=== PATIENT | female | born 1995 | race Caucasian/White ===

== ENCOUNTER 2017-09-08 08:17 | Emergency (ER) | payer SELFPAY ==
[2017-09-08 08:37] VITALS: BP 132/90; PULSE 68; TEMP 98.6; BMI 31.4
[2017-09-08] MEDS ORDERED: ACETAMINOPHEN 500 MG TABLET (FP) ONE (08:38)
--- NOTE | 2017-09-08 08:38 | PDOC ---
History of Present Illness - General Chief Complaint: Pain Stated Complaint: JAMMED LEFT THUMB IN CAR DOOR Time Seen by Provider: 09/08/17 08:20 - History of Present Illness Initial Comments: 09/08/17 08:32 22-year-old R handed female with no significant past medical history presents to the emergency Department with left thumb pain after jamming her finger in a car door yesterday. Patient was going home from work last night about 1 AM when she closed the car door on her distal thumb. She reports significant pain at the time but was able to tolerate it and went home and went to bed. She reports the pain has become progressively worse prompting her to come into the emergency department. Patient was otherwise in her usual state of good health, denies fevers, chills, chest pain, shortness of breath, abdominal pain, nausea, vomiting, diarrhea, lower extremity edema. Denies any other injuries. Past History - Past Medical History Allergies/Adverse Reactions: Allergies Allergy/AdvReac Type Severity Reaction Status Date / Time No Known Allergies Allergy Verified 09/08/17 08:18 Home Medications: Ambulatory Orders NK [No Known Home Medication] 09/08/17 - Suicide/Smoking/Psychosocial Hx Smoking Status: No Smoking History: Never smoked Number of Cigarettes Smoked Daily: 0 Review of Systems - Review of Systems Comments:: 09/08/17 08:36 GENERAL/CONSTITUTIONAL: No fever or chills. No weakness. HEAD, EYES, EARS, NOSE AND THROAT: No change in vision. No ear pain or discharge. No sore throat. GASTROINTESTINAL: No nausea, vomiting, diarrhea or constipation. GENITOURINARY: No dysuria, frequency, or change in urination. CARDIOVASCULAR: No chest pain or shortness of breath. RESPIRATORY: No cough, wheezing, or hemoptysis. MUSCULOSKELETAL: No muscle swelling or pain. No neck or back pain. +L thumb pain SKIN: No rash NEUROLOGIC: No headache, vertigo, loss of consciousness, or change in strength/ sensation. ENDOCRINE: No increased thirst. No abnormal weight change. HEMATOLOGIC/LYMPHATIC: No anemia, easy bleeding, or history of blood clots. ALLERGIC/IMMUNOLOGIC: No hives or skin allergy. *Physical Exam - Physical Exam Comments: 09/08/17 08:36 GENERAL: Awake, alert, and fully oriented, in no acute distress HEAD: No signs of trauma EYES: PERRLA, EOMI, sclera anicteric, conjunctiva clear ENT: Auricles normal inspection, hearing grossly normal, nares patent, oropharynx clear without exudates. Moist mucosa NECK: Normal ROM, supple, no lymphadenopathy, JVD, or masses LUNGS: Breath sounds equal, clear to auscultation bilaterally. No wheezes, and no crackles HEART: Regular rate and rhythm, normal S1 and S2, no murmurs, rubs or gallops ABDOMEN: Soft, nontender, normoactive bowel sounds. No guarding, no rebound. No masses EXTREMITIES: L thumbnail with acrylic nail on obscuring nail, however evidence of subungal hematoma at nail bed. L thumb with FROM to passive and active resistance, normal sensation. 2+ radial pulse. Otherwise, normal range of motion , no edema. No clubbing or cyanosis. No cords, erythema, or tenderness NEUROLOGICAL: Normal speech, cranial nerves intact, 5/5 strength in all 4 extremities SKIN: Warm, Dry, normal turgor, no rashes or lesions noted. Medical Decision Making - Medical Decision Making 09/08/17 08:39 22yo F presents to the ED with L thumb injury. Plan to check UPT, XR for bony injury. Will obtain acetone to soak and remove acrylic nail and assess for need for trephination. Has not taken anything for pain control, will start with tylenol, then likely digital nerve block. 09/08/17 11:04 Tdap updated. Nail soaked in acetone. UPT neg, XR with no fracture. EMLA applied , nerve block administered. Acrylic nail mostly removed using scalpel and suture material, reveals a 25-30% subungal hematoma underneath, with tiny 1mm defect in the skin at the nail bed. Pt likely bled through this defect which limited size of subungal hematoma. Finger washed out. Given small hematoma, will not trephinate or remove nail. Finger placed in splint, will refer to hand surgeon. Discussed with pt that her nail will be abnormal for 6 months, possibly indefinitely. Pain well controlled, will DC. I discussed the physical exam findings, ancillary test results and final diagnoses with the patient. I answered all of the patient's questions. The patient was satisfied with the care received and felt comfortable with the discharge plan and treatment plan. The patient will call their primary care physician within 24 hours to arrange follow-up and will return to the Emergency Department with any new, persistent or worsening symptoms. *DC/Admit/Observation/Transfer Diagnosis at time of Disposition: Fingernail injury - Discharge Dispostion Disposition: HOME Condition at time of disposition: Stable Admit: No - Referrals Referrals: Dalton Harley MD [Staff Physician] - - Patient Instructions Printed Discharge Instructions: DI for Nail Avulsion Injury Additional Instructions: Call Dr. Hoffman's office for a follow up appointment with the hand doctor within 1 week. Take naproxen as needed for pain. If naproxen does not adequately control your pain, take Percocet as needed. Do not drive or operate machinery if you're taking Percocet as it can make you dizzy or drowsy. Return to the emergency department if you have any new, worsening or concerning symptoms. - Post Discharge Activity Forms/Work/School Notes: Back to Work - Attestations Physician Attestion: 09/08/17 11:17 I, Dr. Cesar Madsen MD, attest that this document has been prepared under my direction and personally reviewed by me in its entirety. I further attest, that it accurately reflects all work, treatment, procedures and medical decision -making performed by me.
[2017-09-08] MEDS ORDERED: ACETAMINOPHEN 500 MG TABLET (FP) PO ONE (08:41)
[2017-09-08] MEDS ORDERED: LIDOCAINE 2.5%/PRILOCAINE 2.5% (5 Gram/TUBE) TP ONE ×2 (09:38→09:41)
[2017-09-08] MEDS ORDERED: oxyCODONE HCL 5 MG TABLET PO ONE (09:39)
[2017-09-08] MEDS ORDERED: LIDOCAINE HCL 1%, 10 MG/ML (50 mL VIAL) SQ ONE (10:03)
[2017-09-08] MEDS ORDERED: LIDOCAINE HCL 1%, 10 MG/ML (20ML VIAL) ONE (10:05)
[2017-09-08] MEDS ORDERED: DIPHTH,PERTUSS(ACELL),TET 0.5 ML DISP.SYRIN IM ONE (11:04)
== END 2017-09-08 11:27 | disposition home or self-care (01) ==
LOC: FER 08:17
PROC: 2W3KX1Z Immobilization of Left Finger using Splint (ICD-10-PCS; principal; 2017-09-08)
PROC: 3E0234Z Introduction of Serum, Toxoid and Vaccine into Muscle, Percutaneous Approach (ICD-10-PCS; 2017-09-08)
PROC: 3E033NZ Introduction of Analgesics, Hypnotics, Sedatives into Peripheral Vein, Percutaneous Approach (ICD-10-PCS; 2017-09-08)
DX: S69.92XA Unspecified injury of left wrist, hand and finger(s), initial encounter (principal); W20.8XXA Other cause of strike by thrown, projected or falling object, initial encounter; Y93.89 Activity, other specified; Y92.9 Unspecified place or not applicable
CPT/HCPCS: 73130-TC-LR-FY; 73140-TC-LT-FY; 84703; 90715; 99282-25

== ENCOUNTER 2018-08-09 13:47 | Emergency (ER) | payer OTHER ==
--- NOTE | 2018-08-09 14:05 | PDOC ---
History of Present Illness - General History Source: Patient Exam Limitations: No Limitations - History of Present Illness Initial Comments: 08/09/18 15:08 The patient is a 23 year old female with no reported past medical history presents to the emergency department with abdominal pain, nausea, and vomiting. The patient presents with a gradual onset of constant lower abdominal pain, that s crampy in quality. The patient reports associated symptoms of a headache, nausea with a single episode of NBNB emesis yesterday. Denies diarrhea, vaginal discharge/bleeding, fever or chills. Allergies: NKDA PCP: None reported. <Marylin Palacio - Last Filed: 08/09/18 15:49> <Lelo Zuluaga - Last Filed: 08/09/18 17:22> - General Chief Complaint: Nausea Stated Complaint: STOMACH ACHE & NAUSEA Time Seen by Provider: 08/09/18 14:05 Past History <Marylin Palacio - Last Filed: 08/09/18 15:49> - Past Medical History COPD: No - Suicide/Smoking/Psychosocial Hx Smoking Status: No Smoking History: Never smoked Have you smoked in the past 12 months: No Number of Cigarettes Smoked Daily: 0 Hx Alcohol Use: Yes (SOCIAL) Drug/Substance Use Hx: Yes (MARIJUANA) Substance Use Type: Alcohol, Marijuana <Lelo Zuluaga - Last Filed: 08/09/18 17:22> - Past Medical History Allergies/Adverse Reactions: Allergies Allergy/AdvReac Type Severity Reaction Status Date / Time No Known Allergies Allergy Verified 08/09/18 14:01 Home Medications: Ambulatory Orders Bismuth Subsalicylate [Pepto-Bismol -] 524 mg PO ONCE 08/09/18 Calcium Carbonate/Simethicone [Gisselle-Tyrone Heartburn+Gas] 1 each PO ONCE Ibuprofen 400 mg PO ONCE 08/09/18 Review of Systems - Review of Systems Able to Perform ROS?: Yes Comments:: 08/09/18 15:08 GENERAL/CONSTITUTIONAL: No fever or chills. No weakness. HEAD, EYES, EARS, NOSE AND THROAT: No change in vision. No ear pain or discharge. No sore throat. CARDIOVASCULAR: No chest pain or shortness of breath. RESPIRATORY: No cough, wheezing, or hemoptysis. GASTROINTESTINAL: +lower abdominal pain, nausea and 1 episode of vomiting. Denies diarrhea or constipation. GENITOURINARY: No dysuria, frequency, or change in urination. MUSCULOSKELETAL: No joint or muscle swelling or pain. No neck or back pain. SKIN: No rash NEUROLOGIC: +headache. No vertigo, loss of consciousness, or change in strength /sensation. ENDOCRINE: No increased thirst. No abnormal weight change. HEMATOLOGIC/LYMPHATIC: No anemia, easy bleeding, or history of blood clots. ALLERGIC/IMMUNOLOGIC: No hives or skin allergy. <Marylin Palacio - Last Filed: 08/09/18 15:49> *Physical Exam - Vital Signs Last Vital Signs Temp Pulse Resp BP Pulse Ox 99.3 F 60 16 132/72 100 08/09/18 13:58 08/09/18 13:58 08/09/18 13:58 08/09/18 14:56 08/09/18 13:58 - Physical Exam Comments: 08/09/18 15:48 GENERAL: Awake, alert, and fully oriented, in no acute distress LUNGS: Breath sounds equal, clear to auscultation bilaterally. No wheezes, and no crackles HEART: Regular rate and rhythm, normal S1 and S2, no murmurs, rubs or gallops ABDOMEN: +very mild tenderness to the LLQ. Soft, nondistended. No guarding, no rebound. No masses EXTREMITIES: Normal range of motion, no edema. No clubbing or cyanosis. No cords, erythema, or tenderness NEUROLOGICAL: Cranial nerves II through XII grossly intact. Normal speech, normal gait SKIN: Warm, Dry, normal turgor, no rashes or lesions noted. <Marylin Palacio - Last Filed: 08/09/18 15:49> Moderate Sedation - Procedure Monitoring Vital Signs: Procedure Monitoring Vital Signs Temperature 99.3 F 08/09/18 13:58 Pulse Rate 60 08/09/18 13:58 Respiratory Rate 16 08/09/18 13:58 Blood Pressure 132/72 08/09/18 14:56 O2 Sat by Pulse Oximetry (%) 100 08/09/18 13:58 <Marylin Palacio - Last Filed: 08/09/18 15:49> ED Treatment Course - LABORATORY CBC & Chemistry Diagram: 08/09/18 15:05 08/09/18 15:05 - ADDITIONAL ORDERS Additional order review: Laboratory Results 08/09/18 14:25 Urine Color Yellow Urine Appearance Clear Urine pH 7.5 Urine Protein Negative Urine Glucose (UA) Negative Urine Ketones Negative Urine Blood Negative Urine Nitrite Negative Urine Bilirubin Negative Urine Urobilinogen 1.0 Ur Leukocyte Esterase Negative Urine HCG, Qual Positive <Marylin Palacio - Last Filed: 08/09/18 15:49> - LABORATORY CBC & Chemistry Diagram: 08/09/18 15:05 08/09/18 15:05 <Lelo Zuluaga - Last Filed: 08/09/18 17:22> Medical Decision Making - Medical Decision Making 08/09/18 17:16 Pt presents to the ED complaining of mild L sided abdominal pain without vaginal bleeding. Concern for ectopic, UTI. Denies vaginal bleeding or discharge. Transvaginal US shows IUP. Will discharge home with follow up and instructions to return to the ED for worsening symptoms. <Lelo Zuluaga - Last Filed: 08/09/18 17:22> *DC/Admit/Observation/Transfer - Attestations Scribe Attestion: 08/09/18 15:48 Documentation prepared by Marylin Palacio, acting as bilingual medical assistant for Lelo Zuluaga MD. <Marylin Palacio - Last Filed: 08/09/18 15:49> - Discharge Dispostion Decision to Admit order: No <Lelo Zuluaga - Last Filed: 08/09/18 17:22> Diagnosis at time of Disposition: Pelvic pain affecting in first trimester, antepartum - Discharge Dispostion Disposition: HOME Condition at time of disposition: Good - Referrals Referrals: Prince Duke MD [Staff Physician] - - Patient Instructions Printed Discharge Instructions: DI for Abdominal Pain -- Early Additional Instructions: You came to the ED for abdominal pain. We found that you are . You had an ultrasound that found that the baby was in the uterus. You call on Sunday to make an appointment for care. Return to the ED for vaginal bleeding, worsening abdominal pain, passing out, severe nausea and vomiting unable to keep fluids down.
[2018-08-09 14:08] VITALS: PULSE 60; TEMP 99.3; BMI 31.9
[2018-08-09 14:48] LABS: HCG,QUALITATIVE URINE Positive
[2018-08-09 14:56] VITALS: BP 132/72
[2018-08-09 15:27] LABS: EOS % 0.7 % (0-4.5)
[2018-08-09 15:30] LABS: HEMATOCRIT 30.5 % (32.4-45.2); HEMOGLOBIN 9.2 GM/dl (10.7-15.3); LYMPH % 19.6 % (8-40); MCHC 30.1 g/dl (32.0-36.0); MEAN PLT VOLUME 8.5 fl (7.5-11.1); MONO % 4.9 % (3.8-10.2); NEUT % 72.8 % (42.8-82.8); PLATELET COUNT 277 K/MM3 (134-434); RBC 4.92 M/mm3 (3.60-5.2); RDW 19.4 % (11.6-15.6); WHITE BLOOD COUNT 12.8 K/mm3 (4.0-10.8)
[2018-08-09 15:33] LABS: MCH 18.6 pg (25.7-33.7)
[2018-08-09 15:34] LABS: ADD RBC MORPHOLOGY YES
[2018-08-09 15:39] LABS: ALBUMIN 3.5 g/dl (3.4-5.0); ALK PHOS 53 U/L (45-117); ANION GAP 9 MMOL/L (8-16); BILIRUBIN,TOTAL 0.7 mg/dl (0.2-1); BLOOD UREA NITROGEN 11 mg/dl (7-18); CALCIUM 8.9 mg/dl (8.5-10); CHLORIDE 102 mmol/L (98-107); CO2 22 mmol/L (21-32); CREATININE 0.6 mg/dl (0.55-1.3); GLUCOSE,RANDOM 105 mg/dl (74-106); POTASSIUM 4.1 mmol/L (3.5-5.1); SGOT/AST 20 U/L (15-37); SGPT/ALT 14 U/L (13-61); SODIUM 133 mmol/L (136-145); TOT PROT 7.2 g/dl (6.4-8.2)
[2018-08-09 16:25] LABS: ANISOCYTOSIS 1+
[2018-08-09 16:26] LABS: OVALOCYTE 1+
== END 2018-08-09 17:33 | disposition home or self-care (01) ==
LOC: FER 13:47
DX: O26.891 Other specified pregnancy related conditions, first trimester (principal); R10.2 Pelvic and perineal pain
CPT/HCPCS: 36415; 76817-TC; 80053; 84702; 84703; 85025; 86850; 86900; 86901; 99282-25

== ENCOUNTER 2018-08-28 15:36 | Emergency (ER) | payer OTHER ==
[2018-08-28 15:51] VITALS: BP 142/57; PULSE 65; TEMP 98.4
--- NOTE | 2018-08-28 16:01 | PDOC ---
Rapid Medical Evaluation Chief Complaint: Pain, Acute Time Seen by Provider: 08/28/18 15:57 Medical Evaluation: Allergies Allergy/AdvReac Type Severity Reaction Status Date / Time No Known Allergies Allergy Verified 08/09/18 14:01 Vital Signs Temp Pulse Resp BP Pulse Ox 98.4 F 65 18 142/57 L 98 08/28/18 15:48 08/28/18 15:48 08/28/18 15:48 08/28/18 15:48 08/28/18 15:48 08/28/18 16:00 Pt c/o: abd pain, LMP 08/31, went to urgent care, noted rt ovarian mass?, no vag bleed Pt on brief exam: rt and midsuprapubic tenderness Pt ordered for: labs, urine, and u/s Pt to proceed to the ED Discharge Disposition - Diagnosis Abdominal pain - Discharge Dispostion Condition at time of disposition: Stable Last Admission D/C Date: 96 - Referrals - Patient Instructions - Post Discharge Activity
[2018-08-28 16:41] LABS: EOS % 0.4 % (0-4.5); HEMATOCRIT 28.4 % (32.4-45.2); HEMOGLOBIN 8.7 GM/dL (10.7-15.3); MCHC 30.6 g/dl (32.0-36.0); MEAN CELL VOLUME 61.5 fl (80-96); MEAN PLT VOLUME 8.9 fl (7.5-11.1); MONO % 6.5 % (3.8-10.2); NEUT % 81.1 % (42.8-82.8); PLATELET COUNT 241 K/MM3 (134-434); RBC 4.62 M/mm3 (3.60-5.2); RDW 21.5 % (11.6-15.6); WHITE BLOOD COUNT 12.4 K/mm3 (4.0-10.0)
[2018-08-28 16:45] LABS: EPI CELLS 15.2 /HPF (0-5/HPF); PH,URINE 5.5 (5.0-8.0); URINE APPEARANCE CLOUDY; URINE BACTERIA 1274.7 /hpf (NEGATIVE); URINE BILIRUBIN NEGATIVE (NEGATIVE); URINE CASTS 5 /hpf (0-8); URINE COLOR YELLOW; URINE GLUCOSE (UA) NEGATIVE (NEGATIVE); URINE KETONE TRACE (NEGATIVE); URINE LEUK ESTERASE NEGATIVE (NEGATIVE); URINE NITRITE NEGATIVE (NEGATIVE); URINE PROTEIN 1+ (NEGATIVE); URINE RBC 4 /hpf (0-4); URINE UROBILINOGEN 0.2 mg/dL (0.2-1.0); URINE WBC 7 /hpf (0-5)
[2018-08-28 16:52] LABS: MCH 18.8 pg (25.7-33.7)
[2018-08-28 17:32] LABS: ALBUMIN 3.4 g/dl (3.4-5.0); ALK PHOS 53 U/L (45-117); ANION GAP 7 MMOL/L (8-16); BILIRUBIN,TOTAL 0.2 mg/dL (0.2-1); BLOOD UREA NITROGEN 11 mg/dL (7-18); CALCIUM 8.9 mg/dL (8.5-10.1); CHLORIDE 104 mmol/L (98-107); CO2 24 mmol/L (21-32); CREATININE 0.5 mg/dL (0.55-1.3); GLUCOSE,RANDOM 93 mg/dL (74-106); MAGNESIUM 1.8 mg/dL (1.8-2.4); POTASSIUM 3.8 mmol/L (3.5-5.1); SGOT/AST 13 U/L (15-37); SGPT/ALT 27 U/L (13-61); SODIUM 135 mmol/L (136-145); TOT PROT 7.4 g/dl (6.4-8.2)
[2018-08-28 18:24] LABS: ANISOCYTOSIS 2+; PLATELET ESTIMATE ADEQUATE
--- NOTE | 2018-08-28 18:33 | PDOC ---
History of Present Illness - General Chief Complaint: Pain, Acute Stated Complaint: 8 WK /LT LOWER ABD PAIN Time Seen by Provider: 08/28/18 15:57 History Source: Patient Past History - Past Medical History Allergies/Adverse Reactions: Allergies Allergy/AdvReac Type Severity Reaction Status Date / Time No Known Allergies Allergy Verified 08/09/18 14:01 Home Medications: Ambulatory Orders Bismuth Subsalicylate [Pepto-Bismol -] 524 mg PO ONCE 08/09/18 Calcium Carbonate/Simethicone [Gisselle-Parachute Heartburn+Gas] 1 each PO ONCE Ibuprofen 400 mg PO ONCE 08/09/18 Nitrofurantoin Monohyd/M-Cryst [Macrobid -] 100 mg PO BID #14 capsule 08/28/18 COPD: No - Surgical History Gastric Stapling: No - Immunization History Immunization Up to Date: No - Suicide/Smoking/Psychosocial Hx Smoking Status: No Smoking History: Never smoked Have you smoked in the past 12 months: No Number of Cigarettes Smoked Daily: 0 Information on smoking cessation initiated: No 'Breaking Loose' booklet given: 08/09/18 Hx Alcohol Use: No Drug/Substance Use Hx: No Substance Use Type: Alcohol, Marijuana Review of Systems - Review of Systems Constitutional: No: Chills, Fever ABD/GI: Yes: Abdominal cramping. No: Nausea, Vomiting : No: Burning, Discharge, Flank Pain *Physical Exam - Vital Signs Last Vital Signs Temp Pulse Resp BP Pulse Ox 98.4 F 65 18 142/57 L 98 08/28/18 15:48 08/28/18 15:48 08/28/18 15:48 08/28/18 15:48 08/28/18 15:48 - Physical Exam General Appearance: Yes: Appropriately Dressed. No: Apparent Distress HEENT: positive: Normal Voice Neck: positive: Supple Gastrointestinal/Abdominal: positive: Soft. negative: Tender Musculoskeletal: negative: CVA Tenderness Integumentary: positive: Dry, Warm Neurologic: positive: Fully Oriented, Alert, Normal Mood/Affect ED Treatment Course - LABORATORY CBC & Chemistry Diagram: 08/28/18 16:07 08/28/18 16:07 - ADDITIONAL ORDERS Additional order review: Laboratory Results 08/28/18 08/28/18 16:13 16:07 Sodium 135 L Potassium 3.8 Chloride 104 Carbon Dioxide 24 Anion Gap 7 L BUN 11 Creatinine 0.5 L Creat Clearance w eGFR 154.28 Random Glucose 93 Calcium 8.9 Magnesium 1.8 Total Bilirubin 0.2 AST 13 L ALT 27 Alkaline Phosphatase 53 Total Protein 7.4 Albumin 3.4 Beta HCG, Quant 46833.0 Urine Color Yellow Urine Appearance Cloudy Urine pH 5.5 Ur Specific [place] 1.029 Urine Protein 1+ H Urine Glucose (UA) Negative Urine Ketones Trace H Urine Blood Negative Urine Nitrite Negative Urine Bilirubin Negative Urine Urobilinogen 0.2 Ur Leukocyte Esterase Negative Urine WBC (Auto) 7 Urine RBC (Auto) 4 Urine Casts (Auto) 5 U Epithel Cells (Auto) 15.2 Urine Bacteria (Auto) 1274.7 08/28/18 16:07 RBC 4.62 MCV 61.5 L MCHC 30.6 L RDW 21.5 H MPV 8.9 Neutrophils % 81.1 D Lymphocytes % 11.0 D Monocytes % 6.5 Eosinophils % 0.4 Basophils % 1.0 Medical Decision Making - Medical Decision Making 08/28/18 18:32 23 yo F, no sig hx, , ~9 weeks by per date, here with vague lower abdominal pain that started several days ago, since improved. No vaginal bleed, dysuria, nausea, vomiting, fever or chills. Patient states she went to ED at [place] 08/09/18 with nausea, vomiting and dizziness and was told she was then. States ultrasound done told there was an IUP. States her first appt is September 19 See exam 1st trimester w/ abd pain No vag bleed or dysuria Confirmed IUP on US 08/09 at [facility] and again today (9 weeks w/ FHR) UA w/ UTI, cx sent -will dc w/ abx and f/u *DC/Admit/Observation/Transfer Diagnosis at time of Disposition: Abdominal pain affecting UTI (urinary tract infection) Qualifiers: Urinary tract infection type: acute cystitis Hematuria presence: without hematuria Qualified Code(s): N30.00 - Acute cystitis without hematuria - Discharge Dispostion Disposition: HOME Condition at time of disposition: Stable - Prescriptions Prescriptions: Nitrofurantoin Monohyd/M-Cryst [Macrobid -] 100 mg PO BID #14 capsule - Referrals - Patient Instructions Printed Discharge Instructions: Managing Symptoms of , DI for Urinary Tract Infection (UTI) Additional Instructions: Your beta was over 76,000. Your ultrasound shows an intrauterine at about 9 weeks with heart activity. Your urine shows that you have a UTI and you were started on Macrobid. Return to ER for worsening of symptoms, otherwise follow-up with your INSPECTION AND TESTING SUPERVISOR - Post Discharge Activity
--- NOTE | 2018-08-28 18:43 | PDOC ---
*Physical Exam - Vital Signs Last Vital Signs Temp Pulse Resp BP Pulse Ox 98.4 F 65 18 142/57 L 98 08/28/18 15:48 08/28/18 15:48 08/28/18 15:48 08/28/18 15:48 08/28/18 15:48 ED Treatment Course - LABORATORY CBC & Chemistry Diagram: 08/28/18 16:07 08/28/18 16:07 - ADDITIONAL ORDERS Additional order review: Laboratory Results 08/28/18 08/28/18 08/28/18 16:13 16:07 16:07 WBC 12.4 H RBC 4.62 Hgb 8.7 L Hct 28.4 L D MCV 61.5 L MCH 18.8 L D MCHC 30.6 L RDW 21.5 H Plt Count 241 MPV 8.9 Absolute Neuts (auto) 10.1 H Neutrophils % 81.1 D Lymphocytes % 11.0 D Monocytes % 6.5 Eosinophils % 0.4 Basophils % 1.0 Nucleated RBC % 0 Hypochromia 2+ Platelet Estimate Adequate Anisocytosis 2+ Microcytosis 2+ Sodium 135 L Potassium 3.8 Chloride 104 Carbon Dioxide 24 Anion Gap 7 L BUN 11 Creatinine 0.5 L Creat Clearance w eGFR 154.28 Random Glucose 93 Calcium 8.9 Magnesium 1.8 Total Bilirubin 0.2 AST 13 L ALT 27 Alkaline Phosphatase 53 Total Protein 7.4 Albumin 3.4 Beta HCG, Quant 96265.0 Urine Color Yellow Urine Appearance Cloudy Urine pH 5.5 Ur Specific [place] 1.029 Urine Protein 1+ H Urine Glucose (UA) Negative Urine Ketones Trace H Urine Blood Negative Urine Nitrite Negative Urine Bilirubin Negative Urine Urobilinogen 0.2 Ur Leukocyte Esterase Negative Urine WBC (Auto) 7 Urine RBC (Auto) 4 Urine Casts (Auto) 5 U Epithel Cells (Auto) 15.2 Urine Bacteria (Auto) 1274.7 08/28/18 16:07 RBC 4.62 MCV 61.5 L MCHC 30.6 L RDW 21.5 H MPV 8.9 Neutrophils % 81.1 D Lymphocytes % 11.0 D Monocytes % 6.5 Eosinophils % 0.4 Basophils % 1.0 *DC/Admit/Observation/Transfer Diagnosis at time of Disposition: Abdominal pain affecting UTI (urinary tract infection) Qualifiers: Urinary tract infection type: acute cystitis Hematuria presence: without hematuria Qualified Code(s): N30.00 - Acute cystitis without hematuria - Discharge Dispostion Disposition: HOME Condition at time of disposition: Stable - Prescriptions Prescriptions: Nitrofurantoin Monohyd/M-Cryst [Macrobid -] 100 mg PO BID #14 capsule - Referrals - Patient Instructions Printed Discharge Instructions: Managing Symptoms of , DI for Urinary Tract Infection (UTI) Additional Instructions: Your beta was over 76,000. Your ultrasound shows an intrauterine at about 9 weeks with heart activity. You also have a dermoid cyst in your L ovary Your urine shows that you have a UTI and you were started on Macrobid. Return to ER for worsening of symptoms, otherwise follow-up with your PALM AND BACK FORGER - Post Discharge Activity
--- NOTE | 2018-08-28 18:57 | PDOC ---
*Physical Exam - Vital Signs Last Vital Signs Temp Pulse Resp BP Pulse Ox 98.4 F 65 18 142/57 L 98 08/28/18 15:48 08/28/18 15:48 08/28/18 15:48 08/28/18 15:48 08/28/18 15:48 ED Treatment Course - LABORATORY CBC & Chemistry Diagram: 08/28/18 16:07 08/28/18 16:07 - ADDITIONAL ORDERS Additional order review: Laboratory Results 08/28/18 08/28/18 16:13 16:07 Sodium 135 L Potassium 3.8 Chloride 104 Carbon Dioxide 24 Anion Gap 7 L BUN 11 Creatinine 0.5 L Creat Clearance w eGFR 154.28 Random Glucose 93 Calcium 8.9 Magnesium 1.8 Total Bilirubin 0.2 AST 13 L ALT 27 Alkaline Phosphatase 53 Total Protein 7.4 Albumin 3.4 Beta HCG, Quant 30198.0 Urine Color Yellow Urine Appearance Cloudy Urine pH 5.5 Ur Specific [place] 1.029 Urine Protein 1+ H Urine Glucose (UA) Negative Urine Ketones Trace H Urine Blood Negative Urine Nitrite Negative Urine Bilirubin Negative Urine Urobilinogen 0.2 Ur Leukocyte Esterase Negative Urine WBC (Auto) 7 Urine RBC (Auto) 4 Urine Casts (Auto) 5 U Epithel Cells (Auto) 15.2 Urine Bacteria (Auto) 1274.7 08/28/18 16:07 RBC 4.62 MCV 61.5 L MCHC 30.6 L RDW 21.5 H MPV 8.9 Neutrophils % 81.1 D Lymphocytes % 11.0 D Monocytes % 6.5 Eosinophils % 0.4 Basophils % 1.0 *DC/Admit/Observation/Transfer Diagnosis at time of Disposition: Abdominal pain affecting UTI (urinary tract infection) Qualifiers: Urinary tract infection type: acute cystitis Hematuria presence: without hematuria Qualified Code(s): N30.00 - Acute cystitis without hematuria - Discharge Dispostion Disposition: HOME Condition at time of disposition: Stable - Prescriptions Prescriptions: Nitrofurantoin Monohyd/M-Cryst [Macrobid -] 100 mg PO BID #14 capsule - Referrals - Patient Instructions Printed Discharge Instructions: Managing Symptoms of , DI for Urinary Tract Infection (UTI) Additional Instructions: Your beta was over 76,000. Your ultrasound shows an intrauterine at about 9 weeks with heart activity. You also have a dermoid cyst in your L ovary Your urine shows that you have a UTI and you were started on Macrobid. Return to ER for worsening of symptoms, otherwise follow-up with your NEUROPSYCHIATRIST - Post Discharge Activity
== END 2018-08-28 19:09 | disposition home or self-care (01) ==
LOC: JER 15:36
DX: O23.11 Infections of bladder in pregnancy, first trimester (principal); O26.891 Other specified pregnancy related conditions, first trimester; Z3A.08 8 weeks gestation of pregnancy; R10.9 Unspecified abdominal pain
CPT/HCPCS: 36415; 76817-TC; 80053; 81003; 83735; 84702; 85025; 87086; 99283-25

== ENCOUNTER 2018-10-31 23:07 | Emergency (ER) | payer OTHER | END 2018-11-01 02:50 | disposition home or self-care (01) | LOC: JER 11-01 02:50 | DX: O26.892 Other specified pregnancy related conditions, second trimester (principal); O23.592 Infection of other part of genital tract in pregnancy, second trimester; B96.89 Other specified bacterial agents as the cause of diseases classified elsewhere; Z3A.19 19 weeks gestation of pregnancy ==

== ENCOUNTER 2019-02-08 00:26 | Emergency (ER) | payer OTHER ==
[2019-02-08 00:38] VITALS: BP 129/61; PULSE 90; TEMP 97.9; BMI 83.9
--- NOTE | 2019-02-08 00:54 | PDOC ---
History of Present Illness - General Chief Complaint: Vaginal Sxs Stated Complaint: VAGINAL IRRITATION Time Seen by Provider: 02/08/19 00:28 History Source: Patient Exam Limitations: No Limitations - History of Present Illness Initial Comments: 02/08/19 00:49 This is a 24-year-old female who comes in complaining of vaginal irritation and some whitish discharge. Patient is 33 weeks by dates. Patient denies any abdominal cramping or vaginal bleeding. Patient is otherwise healthy and has had a normal to date. Allergies: as per nursing notes Past Medical History: none Social history: Lives with family. No smoking. No alcohol. No illicit drugs. Surgical history: None General: No fevers or chills, no weakness, no weight loss HEENT: No change in vision. No sore throat,. No ear pain CardioVascular: no chest discomfort. No shortness of breath Respiratory:No cough, or wheezing. Gastrointestinal: no nausea, vomiting, diarrhea or constipation, No rectal bleeding Genitourinary: No dysuria, hematuria, or frequency, vaginal irritation with some whitish discharge Musculoskeletal: No joint or muscle pain or swelling Neurologic: No headache, vertigo, dizziness or loss of consciousness Psychiatric: nor depression Skin: No rashes or easy bruising Endocrine: no increased thirst or abnormal weight change Allergic: no skin or latex allergy All other systems reviewed and normal GENERAL: The patient is awake, alert, and fully oriented, in no acute distress. HEAD: Normal with no signs of trauma. EYES: Pupils equal, round and reactive to light, extraocular movements intact, sclera anicteric, conjunctiva clear. EXTREMITIES:atraumatic, Normal range of motion, no edema. Pelvic exam: Patient has irritation of the vaginal area with whitish discharge consistent with vaginal candidiasis NEUROLOGICAL: Normal speech, normal gait. PSYCH: Normal mood, normal affect. SKIN: Warm, Dry, normal turgor, no rashes or lesions noted. Assessment and plan: This is a 24-year-old female who is 33 weeks with vaginal yeast infection. Patient given Monistat 7 and discharged. Patient told to follow-up with her primary care doctor Past History - Past Medical History Allergies/Adverse Reactions: Allergies Allergy/AdvReac Type Severity Reaction Status Date / Time No Known Allergies Allergy Verified 12/09/18 20:05 Home Medications: Ambulatory Orders Vitamins (Sjr) - 1 tab PO DAILY 11/28/18 Anemia: Yes Cancer: No Cardiac Disorders: No CVA: No COPD: No Psychiatric Problems: No - Surgical History Abdominal Surgery: No Appendectomy: No Cardiac Surgery: No Gastric Stapling: No - Reproductive History Is Patient Now?: Yes - Immunization History Immunization Up to Date: No - Suicide/Smoking/Psychosocial Hx Smoking Status: No Smoking History: Never smoked Have you smoked in the past 12 months: No Number of Cigarettes Smoked Daily: 0 'Breaking Loose' booklet given: 08/09/18 Hx Alcohol Use: No Drug/Substance Use Hx: No Substance Use Type: Alcohol, Marijuana *Physical Exam - Vital Signs Last Vital Signs Temp Pulse Resp BP Pulse Ox 97.9 F 90 16 129/61 99 02/08/19 00:02/08/19 00:02/08/19 00:02/08/19 00:02/08/19 00:28 *DC/Admit/Observation/Transfer Diagnosis at time of Disposition: Vaginal yeast infection - Discharge Dispostion Disposition: HOME Condition at time of disposition: Stable Decision to Admit order: No - Referrals Referrals: Bernabe Lindsey MD [Primary Care Provider] - - Patient Instructions Additional Instructions: Insert one vaginal suppository daily before bed for a total of 7 days for the yeast infection. Return to the emergency department immediately with ANY new, persistent or worsening symptoms. Continue any medications as previously prescribed by your physician. You should follow up with your primary doctor as soon as possible regarding today's emergency department visit. . Please make sure your doctor reviews the results of your emergency evaluation. Thank you for coming to the Emergency Department today for your care. It was a pleasure to see you today. Please note that your evaluation is INCOMPLETE until you follow-up with your doctor. - Post Discharge Activity
[2019-02-08] MEDS ORDERED: MICONAZOLE NITRATE 100 MG SUPP SUPP.VAG PV SCH (22:00)
== END 2019-02-08 01:01 | disposition home or self-care (01) ==
LOC: FER 00:26
DX: O26.893 Other specified pregnancy related conditions, third trimester (principal); Z3A.33 33 weeks gestation of pregnancy; B37.3 Candidiasis of vulva and vagina; D64.9 Anemia, unspecified
CPT/HCPCS: 99281-25

== ENCOUNTER 2019-03-27 05:58 | Inpatient (IN) | payer OTHER ==
[2019-03-27] MEDS ORDERED: DEXTROSE 5%-LACTATED RINGERS 1,000 ML IV SCH ×2 (06:00→23:15)
[2019-03-27] MEDS ORDERED: AMPICILLIN - 2 GM in SODIUM CHLORIDE 100 ML IVPB ONE (06:30)
[2019-03-27] MEDS ORDERED: AMPICILLIN SODIUM 2 GM VIAL ONE (06:38)
[2019-03-27 06:49] VITALS: BMI 39.4
[2019-03-27 07:14] LABS: BASO % 0.3 % (0-2.0); EOS % 0.7 % (0-4.5); HEMATOCRIT 31.7 % (32.4-45.2); HEMOGLOBIN 10.3 GM/dL (10.7-15.3); LYMPH % 13.3 % (8-40); MCH 23.5 pg (25.7-33.7); MCHC 32.7 g/dl (32.0-36.0); MONO % 6.4 % (3.8-10.2); NEUT % 79.3 % (42.8-82.8); PLATELET COUNT 181 K/MM3 (134-434); RDW 22.1 % (11.6-15.6); WHITE BLOOD COUNT 12.7 K/mm3 (4.0-10.0)
[2019-03-27 07:32] LABS: BLOOD UREA NITROGEN 10.9 mg/dL (7-18); CALCIUM 8.7 mg/dL (8.5-10.1); CREATININE 0.6 mg/dL (0.55-1.3); POTASSIUM 3.8 mmol/L (3.5-5.1)
[2019-03-27 07:45] LABS: INR 0.87 (0.83-1.09); PROTHROMBIN TIME (PATIENT) 10.3 SEC (9.7-13.0)
[2019-03-27 07:48] LABS: ACTIVATED PTT 28.6 SECONDS (25.2-36.5)
--- NOTE | 2019-03-27 07:51 | HP ---
Past Medical History - Admission History of Present Illness: 24 yo @ 40 1/6 wks by first trimester ultrasound, EDC 03/26/2019 complicated by: 1. Maternal obesity - starting BMI 34.1 33 lb total weight gain Early GCT 103; GCT at 26-28 wks elevated (135) with normal GTT Most recent ultrasound 03/25 - 8 lb 7 oz (3826g) 65%ile 2. Anemia - receiving iron infusions with Dr. Rodgers last H/H 10.3/32.1 3. First trimester hospitalization at [facility] for elevated BP, LOC --> s/p MRI/MRA at [facility]/[place] Negative Neuro workup 4. GBS positive - no PCN allergy Patient presents with chief complaint of leakage of clear fluid at 0420 and mild cramping. She was found to be ruptured, +nitrazine on admission, 1cm dilated Limitations to Obtaining History: No Limitations - Past Medical History Cardiovascular: No: HTN Pulmonary: No: Asthma ...: 1 ...Para: 0 ...Term: 0 ...: 0 ...Spon : 0 ...Induced : 0 ...Multiple Gestation: 0 ...LMP: 08/09/18 ... Weeks Gestation by Dates: 40.1 ...EDC by Dates: 03/26/19 Heme/Onc: Yes: Anemia - Past Surgical History Hx Myomectomy: No Hx Transabdominal Cerclage: No - Smoking History Smoking history: Never smoked Have you smoked in the past 12 months: No Aproximately how many cigarettes per day: 0 - Alcohol/Substance Use Hx Alcohol Use: No Home Medications - Allergies Allergies/Adverse Reactions: Allergies Allergy/AdvReac Type Severity Reaction Status Date / Time No Known Allergies Allergy Verified 03/22/19 12:37 - Home Medications Home Medications: Ambulatory Orders Vitamins (Sjr) - 1 tab PO DAILY 11/28/18 Family Medical History Family History: Denies Review of Systems - Review of Systems Constitutional: reports: No Symptoms Cardiovascular: reports: No Symptoms Respiratory: reports: No Symptoms Gastrointestinal: reports: No Symptoms Genitourinary: reports: No Symptoms Musculoskeletal: reports: No Symptoms Integumentary: reports: No Symptoms Neurological: reports: No Symptoms Hematology/Lymphatic: reports: No Symptoms Physical Exam - Maternity Vital Signs: Vital Signs Temperature 98.1 F 03/27/19 05:58 Pulse Rate 78 03/27/19 05:58 Respiratory Rate 20 03/27/19 05:58 Blood Pressure 131/74 03/27/19 05:58 O2 Sat by Pulse Oximetry (%) Constitutional: Yes: Well Nourished, No Distress, Calm Cardiovascular: Yes: Regular Rate and Rhythm Lungs: Clear to auscultation - Abdominal Exam/OB Number of Fetuses: Single Presentation: Vertex Category: I Accelerations: Non-Uniform Decelerations: None - Vaginal Exam/OB Vaginal Bleediing: No Dilatation (cm): 1 Effacement (%): 90 Amniotic Membrane Status: Ruptured Station: -3 - Physical Exam Edema: No Psychiatric: Yes: Alert, Oriented - Labs Lab Results: CBC, BMP 03/27/19 06:40 03/27/19 06:40 Labs: A positive, antibody negative; RPR NR; HIV neg; Hbs Ag neg; HCV neg; Rubella Immune; Variciella Immune; GCT as above; Hg Dayana AA; GBS Pos Hemorrhage Risk Assessment - Risk Factors Medium Risk Factors: Yes: None High Risk Factors: Yes: None Risk Score: 1 Risk Level: Medium Risk Assessment/Plan 24 yo @ 40 1/7 wks PROm 1. Admit to L&D 2. Routine labs collected and sent 3. GBS positive, no PCn allergy 4. Will offer pain medication upon patient request 5. Will start pitocin for agumentation Risks/beenfits discussed including but not limited to uterine tachysystole, intolerance of labor, need for emergent delivery 6. Will continue expectant management
[2019-03-27] MEDS ORDERED: OXYTOCIN 30 UNITS in 0.9% NS 30 UNIT/500 ML INFUS.BAG IVPB ONE (09:04)
[2019-03-27] MEDS ORDERED: OXYTOCIN 30 UNITS in 0.9% NS 30 UNIT/500 ML INFUS.BAG IVPB SCH (09:15)
[2019-03-27] MEDS: AMPICILLIN - 1 GM in SODIUM CHLORIDE 100 ML IVPB SCH ×4 (10:45→22:30)
[2019-03-27] MEDS ORDERED: AMPICILLIN SODIUM 1 GM VIAL ONE ×3 (10:48→18:39)
[2019-03-27] MEDS ORDERED: PROMETHAZINE HCL 25 MG/1 ML VIAL ONE (11:16)
[2019-03-27] MEDS ORDERED: BUTORPHANOL TARTRATE 1 MG/ML VIAL ONE ×2 (11:16)
[2019-03-27] MEDS ORDERED: PROMETHAZINE HCL 25 MG/1 ML VIAL IVPB ONE (14:15)
[2019-03-27] MEDS ORDERED: BUTORPHANOL TARTRATE 2 MG/ML VIAL IVPB ONE (14:15)
--- NOTE | 2019-03-27 14:28 | PN ---
Progress Note (short form) - Note Progress Note: cx 4 cm , 100, vx -2 MR , fhr cat 1, regular contraction
--- NOTE | 2019-03-27 19:04 | PN ---
Progress Note, Labor Vaginal Exam #2 Labor Exam Date: 03/27/19 Labor Exam Time: 18:45 Heart Rate (range): 130 Dilatation: 5 Effacement (%): 80 Amniotic Membrane Status: Ruptured Presentation: Vertex/Position Station: -2 ( heart cat. 2. In pain; epidural offered. Observe variability.)
[2019-03-27] MEDS ORDERED: FENTANYL/BUPIVACAINE/NS/PF - PCEA - 50 ML DISP.SYRIN EP ONE (19:37)
[2019-03-27] MEDS ORDERED: LIDO 2%/EPI 1:200000 PRESRVFRE (20 ML SDVIAL) ONE ×2 (19:38→21:53)
[2019-03-27] MEDS ORDERED: BUPIVACAINE HCL/PF 2.5 MG/ML - 30 ML VIAL IJ ONE (19:38)
[2019-03-27] MEDS ORDERED: NALOXONE HCL 0.4 MG/ML VIAL IVPUSH PRN (20:04)
[2019-03-27] MEDS: FENTANYL/BUPIVACAINE/NS/PF - PCEA - 50 ML DISP.SYRIN EP SCH (20:15)
[2019-03-27] MEDS ORDERED: ELECTROLYTE-148 SOLN 1,000 ML IV SCH (20:15)
--- NOTE | 2019-03-27 21:02 | PN ---
Progress Note (short form) - Note Progress Note: 830 pm cx 7 cm 80 vx -1 mr, had epidural , had several variable decel with late component , scalp electrode applied . pitocin stopped , iv fluid bolus , LT side , fhr good btbv , will revaluate .finding discussed with patient
[2019-03-27] MEDS ORDERED: CITRIC ACID/SODIUM CITRATE 30 ML UNIT-DOSE CUP PO ONE (21:28)
--- NOTE | 2019-03-27 21:28 | PN ---
Progress Note (short form) - Note Progress Note: cx 7 cm, cont, to have decelration, BTBv good , advised c/s , risks discussed
[2019-03-27] MEDS ORDERED: OXYTOCIN 20 UNITS in 0.9% NS 40 UNIT/2,000 ML INFUS.BAG IV ONE (21:53)
[2019-03-27] MEDS ORDERED: ceFAZolin SODIUM 1 GM VIAL ONE (22:02)
[2019-03-27] MEDS ORDERED: morphine SULFATE/PF 0.5 MG/ML (2cc Syringe - QUVA) ONE ×2 (22:18→22:49)
[2019-03-27] MEDS ORDERED: PHENYLEPHRINE HCL 10 MG/1 ML SINGLE DOSE VIAL ONE (22:34)
[2019-03-27] MEDS ORDERED: KETOROLAC TROMETHAMINE 30 MG/1 ML VIAL ONE (22:47)
[2019-03-27] MEDS ORDERED: METHYLERGONOVINE MALEATE 0.2 MG/1 ML AMP IM PRN (23:06)
[2019-03-27] MEDS ORDERED: diphenhydrAMINE HCL 25 MG CAPSULE (FP) PO PRN (23:06)
[2019-03-27] MEDS ORDERED: BENZOCAINE 20% 57 GM BOTTLE TP PRN (23:06)
[2019-03-27] MEDS ORDERED: BENZOCAINE 28 GM HEMORRHOIDAL OINTMENT PR PRN (23:06)
[2019-03-27] MEDS ORDERED: WITCH HAZEL 50% (TUCKS) 40 PAD/JAR PAD TP PRN (23:06)
--- NOTE | 2019-03-27 23:14 | OP ---
Operative Note - Note: Operative Date: 03/27/19 Pre-Operative Diagnosis: failure to dilate, non reassuring fhr , prolonged ROM Operation: primary LST c/s Findings: live baby boy , 01/27 wt 8.14 lb Post-Operative Diagnosis: Same as Pre-op Surgeon: Prince Duke Senior Research Scientist: Sujey Contreras Anesthesiologist/CERTIFIED PESTICIDE APPLICATOR: Aristides Woodson Anesthesia: Epidural Specimens Removed: placenta Estimated Blood Loss (mls): 700 Drains & Tubes with Location: vivar Drains, Volume Out (mls): 300 Blood Volume Replaced (mls): 0 Fluid Volume Replaced (mls): 1,500 Operative Report Dictated: Yes
[2019-03-27] MEDS ORDERED: OXYTOCIN 20 UNITS in 0.9% NS 20 UNIT/1,000 ML INFUS.BAG IV SCH (23:15)
[2019-03-27] MEDS ORDERED: ONDANSETRON 4 MG/2 ML VIAL IVPUSH PRN (23:24)
[2019-03-28] MEDS ORDERED: OXYTOCIN 20 UNITS in 0.9% NS 20 UNIT/1,000 ML INFUS.BAG IV ONE (00:44)
[2019-03-28] MEDS ORDERED: IBUPROFEN 800 MG/8 ML IJ IVPB ONE (00:53)
[2019-03-28] MEDS: IBUPROFEN 800 MG/8 ML IJ IVPB PRN ×2 (01:05→08:32)
[2019-03-28] MEDS ORDERED: CEFAZOLIN 1 GM/D5W 1 GM/50 ML BAG ONE (01:34)
[2019-03-28] MEDS: CEFAZOLIN 1 GM/D5W 1 GM/50 ML BAG IVPB SCH ×2 (02:41→10:20)
[2019-03-28 07:29] LABS: BASO % 0.5 % (0-2.0); HEMATOCRIT 25.8 % (32.4-45.2); HEMOGLOBIN 8.4 GM/dL (10.7-15.3); LYMPH % 9.4 % (8-40); MCH 23.6 pg (25.7-33.7); MCHC 32.7 g/dl (32.0-36.0); MEAN CELL VOLUME 72.3 fl (80-96); MEAN PLT VOLUME 8.8 fl (7.5-11.1); MONO % 6.2 % (3.8-10.2); NEUT % 83.9 % (42.8-82.8); PLATELET COUNT 151 K/MM3 (134-434); RBC 3.57 M/mm3 (3.60-5.2); RDW 21.3 % (11.6-15.6); WHITE BLOOD COUNT 17.1 K/mm3 (4.0-10.0)
--- NOTE | 2019-03-28 08:31 | PN ---
Progress Note (short form) - Note Progress Note: pod 1 ,doing well, no c/o , CBC, BMP 03/28/19 06:58 03/27/19 06:40 Last Vital Signs Temp Pulse Resp BP Pulse Ox 99 F 74 18 130/65 99 03/28/19 06:00 03/28/19 06:00 03/28/19 06:00 03/28/19 06:00 03/28/19 00:10 abdomen soft, no distension, no cva incision dry, clean no calf tenderness no excess vaginal bleeding vivar clear urine , adequate out put plan ambulate, advance diet repeat cbc day 3 pain management
--- NOTE | 2019-03-28 09:49 | PN ---
Progress Note (short form) - Note Progress Note: 24F POD#1 for c section with epidural (with duramorph). Pt. doing well this am. No apparent anesthesia related complications. Continue management per primary team.
--- NOTE | 2019-03-28 10:29 | OP ---
DATE OF OPERATION: 03/27/2019 PREOPERATIVE DIAGNOSIS: Prolonged ruptured membrane, failure to dilate, and nonreassuring heart rate. POSTOPERATIVE DIAGNOSIS: Prolonged ruptured membrane, failure to dilate, and nonreassuring heart rate. PROCEDURE: Primary low segment transverse section. SURGEON: Kin Marques MD OPTICAL COATING TECHNICIAN: Sujey Contreras MD ANESTHESIA: Epidural. ESTIMATED BLOOD LOSS: 700 mL. FINDINGS: A live baby boy, ROP position. Clear amniotic fluid. Apgars 9, 9. OPERATIVE REPORT: Patient was taken to the operating room under adequate epidural anesthesia. Abdomen and perineum were prepped and draped. Pfannenstiel abdominal skin incision was made. Abdominal wall was cut layer by layer until the peritoneum was exposed and incised. Upon entering the abdominal cavity, lower uterine segment was identified and uterovesical fold of peritoneum established, and bladder was pushed down. Then with the lower blade of the Terrell retractor in the pelvis, a low transverse uterine incision was made. Incision extended laterally with bandage scissors. Amniotic sac was entered. Clear fluid. Head delivered. Nasopharynx was suctioned, and live baby boy was delivered from ROP position without any difficulty. Placenta was delivered manually. Uterine cavity was cleaned of all remaining tissue. Uterine incision was closed in 2 layers, 1st layer with 0 Biosyn continuous suture, the 2nd layer with 0 Biosyn imbricating the 1st layer. Bladder flap was closed with 0 Biosyn continuous suture. Both tubes and ovaries were checked, were normal. Pelvic cavity several times irrigated. No active bleeding was seen. All of the lap pad, sponge, and instrument counts were correct. Peritoneum was closed with 0 Biosyn continuous suture. Muscles were brought together with interrupted sutures of 0 Biosyn. Fascia was closed with 0 Biosyn continuous suture, subcutaneous fat interrupted suture of 0 Biosyn, and the skin was closed with 3-0 Biosyn subcuticular continuous suture. Patient tolerated the procedure well, left the OR in good condition. KIN MARQUES M.D. [id number]
[2019-03-28] MEDS: SIMETHICONE 80 MG TAB.CHEW (FP) PO PRN (14:25)
[2019-03-28] MEDS: oxyCODONE HCL 5 MG TABLET PO PRN ×3 (14:25→23:13)
[2019-03-28] MEDS: IBUPROFEN 600 MG TABLET (FP) PO PRN ×3 (14:25→23:11)
[2019-03-28] MEDS ORDERED: BISACODYL 10 MG SUPP.RECT RC PRN (23:06)
[2019-03-29] MEDS: IBUPROFEN 600 MG TABLET (FP) PO PRN ×4 (06:16→23:12)
[2019-03-29] MEDS: oxyCODONE HCL 5 MG TABLET PO PRN ×4 (06:17→23:13)
--- NOTE | 2019-03-29 14:55 | PN ---
Post Progress Note - Subjective Subjective: Patient without acute complaints. Reports tolerating oral intake without nausea or vomiting. Ambulating without dizziness. Denies fevers or chills. Pain well controlled with oral pain medication. without difficulty. Passing flatus. Post Day: 2 Type of Delivery: Primary C/S Vital Signs: Vital Signs Temperature 98.4 F 03/29/19 07:30 Pulse Rate 91 H 03/29/19 07:30 Respiratory Rate 18 03/29/19 07:30 Blood Pressure 145/85 03/29/19 07:30 O2 Sat by Pulse Oximetry (%) 99 03/28/19 00:10 Breast Exam: Yes: Soft Uterus: Yes: Fundus Firm, Fundus below umbilicus Incision: Yes: Sutures intact Abdomen/GI: Yes: Abdomen soft, Passing flatus, Tolerating PO Lochia: Yes: Rubra Lochia, amount: Small Extremities: Yes: Calves non-tender Perineum: Yes: Intact Activity: Ambulating - Labs Labs: CBC WBC 17.1 K/mm3 (4.0-10.0) H 03/28/19 06:58 RBC 3.57 M/mm3 (3.60-5.2) L 03/28/19 06:58 Hgb 8.4 GM/dL (10.7-15.3) L 03/28/19 06:58 Hct 25.8 % (32.4-45.2) L D 03/28/19 06:58 MCV 72.3 fl (80-96) L 03/28/19 06:58 MCH 23.6 pg (25.7-33.7) L 03/28/19 06:58 MCHC 32.7 g/dl (32.0-36.0) 03/28/19 06:58 RDW 21.3 % (11.6-15.6) H 03/28/19 06:58 Plt Count 151 K/MM3 (134-434) 03/28/19 06:58 MPV 8.8 fl (7.5-11.1) 03/28/19 06:58 Absolute Neuts (auto) 14.3 K/mm3 (1.5-8.0) H 03/28/19 06:58 Neutrophils % 83.9 % (42.8-82.8) H 03/28/19 06:58 Lymphocytes % 9.4 % (8-40) D 03/28/19 06:58 Monocytes % 6.2 % (3.8-10.2) 03/28/19 06:58 Eosinophils % 0.0 % (0-4.5) D 03/28/19 06:58 Basophils % 0.5 % (0-2.0) 03/28/19 06:58 Nucleated RBC % 0 % (0-0) 03/28/19 06:58 Assessment/Plan 24yo P0 s/p Primary c/section VSS, afebrile Doing well Apos/baby boy elevated WBC will follow
[2019-03-29] MEDS: SIMETHICONE 80 MG TAB.CHEW (FP) PO PRN ×2 (18:51→23:12)
[2019-03-29] MEDS: SENNOSIDES/DOCUSATE COMBO (SENNA PLUS) TABLET (UD) PO PRN (23:13)
[2019-03-30] MEDS: FENTANYL/BUPIVACAINE/NS/PF - PCEA - 50 ML DISP.SYRIN EP SCH (01:02)
[2019-03-30] MEDS: IBUPROFEN 600 MG TABLET (FP) PO PRN ×3 (06:34→21:31)
[2019-03-30] MEDS: oxyCODONE HCL 5 MG TABLET PO PRN ×3 (06:34→21:30)
[2019-03-30] MEDS: SIMETHICONE 80 MG TAB.CHEW (FP) PO PRN ×2 (06:35→21:30)
--- NOTE | 2019-03-30 07:33 | PN ---
Post Progress Note - Subjective Subjective: Patient without acute complaints. Reports tolerating oral intake without nausea or vomiting. Ambulating without dizziness. Denies fevers or chills. Pain well controlled with oral pain medication. without difficulty. Passing flatus. Post Day: 3 Type of Delivery: Primary C/S Vital Signs: Vital Signs Temperature 98.7 F 03/29/19 22:00 Pulse Rate 88 03/29/19 22:00 Respiratory Rate 18 03/29/19 22:00 Blood Pressure 131/79 03/29/19 22:00 O2 Sat by Pulse Oximetry (%) 99 03/28/19 00:10 Breast Exam: Yes: Soft Uterus: Yes: Fundus Firm Incision: Yes: Sutures intact Abdomen/GI: Yes: Abdomen soft, Tolerating PO Lochia: Yes: Rubra Lochia, amount: Small Extremities: Yes: Calves non-tender Perineum: Yes: Intact Activity: Ambulating - Labs Labs: CBC WBC 17.1 K/mm3 (4.0-10.0) H 03/28/19 06:58 RBC 3.57 M/mm3 (3.60-5.2) L 03/28/19 06:58 Hgb 8.4 GM/dL (10.7-15.3) L 03/28/19 06:58 Hct 25.8 % (32.4-45.2) L D 03/28/19 06:58 MCV 72.3 fl (80-96) L 03/28/19 06:58 MCH 23.6 pg (25.7-33.7) L 03/28/19 06:58 MCHC 32.7 g/dl (32.0-36.0) 03/28/19 06:58 RDW 21.3 % (11.6-15.6) H 03/28/19 06:58 Plt Count 151 K/MM3 (134-434) 03/28/19 06:58 MPV 8.8 fl (7.5-11.1) 03/28/19 06:58 Absolute Neuts (auto) 14.3 K/mm3 (1.5-8.0) H 03/28/19 06:58 Neutrophils % 83.9 % (42.8-82.8) H 03/28/19 06:58 Lymphocytes % 9.4 % (8-40) D 03/28/19 06:58 Monocytes % 6.2 % (3.8-10.2) 03/28/19 06:58 Eosinophils % 0.0 % (0-4.5) D 03/28/19 06:58 Basophils % 0.5 % (0-2.0) 03/28/19 06:58 Nucleated RBC % 0 % (0-0) 03/28/19 06:58 Assessment/Plan 24yo P0 s/p Primary c/section, POD # 3 VSS, afebrile Doing well A pos/baby boy Circumcised elevated WBC will follow no evidance of infection Plan D\C 03/31/19
[2019-03-30 08:06] LABS: BASO % 0.4 % (0-2.0); EOS % 1.4 % (0-4.5); HEMATOCRIT 26.6 % (32.4-45.2); HEMOGLOBIN 8.8 GM/dL (10.7-15.3); LYMPH % 19.4 % (8-40); MCHC 32.9 g/dl (32.0-36.0); MEAN PLT VOLUME 8.3 fl (7.5-11.1); MONO % 8.3 % (3.8-10.2); NEUT % 70.5 % (42.8-82.8); PLATELET COUNT 171 K/MM3 (134-434); RBC 3.65 M/mm3 (3.60-5.2); RDW 21.3 % (11.6-15.6); WHITE BLOOD COUNT 9.1 K/mm3 (4.0-10.0)
[2019-03-30] MEDS: SENNOSIDES/DOCUSATE COMBO (SENNA PLUS) TABLET (UD) PO PRN (21:32)
[2019-03-31] MEDS: IBUPROFEN 600 MG TABLET (FP) PO PRN (08:13)
[2019-03-31] MEDS: SIMETHICONE 80 MG TAB.CHEW (FP) PO PRN (08:13)
[2019-03-31 08:50] VITALS: BP 140/77; PULSE 70; TEMP 98
[2019-03-31] MEDS ORDERED: oxyCODONE HCL 5 MG TABLET PO PRN ×2 (10:05)
[2019-03-31] MEDS ORDERED: oxyCODONE HCL 5 MG TABLET ONE (10:07)
[2019-03-31] MEDS ORDERED: ACETAMINOPHEN 325 MG TABLET (FP) ONE (10:07)
--- NOTE | 2019-03-31 10:32 | DS ---
Physical Exam-PLATEMAN Vital Signs: Vital Signs Temperature 98.0 F 03/31/19 08:37 Pulse Rate 70 03/31/19 08:37 Respiratory Rate 18 03/31/19 08:37 Blood Pressure 140/77 03/31/19 08:37 O2 Sat by Pulse Oximetry (%) 99 03/28/19 00:10 Labs: CBC, BMP 03/30/19 07:25 03/27/19 06:40 Delivery - Delivery Type of Anesthesia: Epidural, Spinal Episiotomy/Laceration: None EBL (cc): 700 Delivery, Single - Stages of Labor Date 1st Stage Initiatied: 03/27/19 Time 1st Stage Initiated: 11:30 Date of Delivery: 03/27/19 Time of Delivery: 22:16 Time Placenta Delivered: 22:15 - Condition of Infant Specialty Foods Cook/Hr Operations Advisor Present: Yes Name: Aditya Butcher Gender: Male Weight: 8 lb 14 oz Position: Right, OP Total Hours ROM (Hrs/Mins): 17H16M - 1 Minute Total Score: 9 5 Minutes Total Score: 9 - [place] Feeding Plan Initial Plan: Exclusive throughout hospitalization Discharge Summary Reason For Visit: LABOR Procedures: Principal: Primary c/section Other Procedures: Penile circumcision Condition: Good - Instructions Diet, Activity, Other Instructions: Physical activity Resume your normal everyday activity as tolerated no heavy lifting or exercise until seen by your surgeon. You may walk unlimited trisha of and climb stairs. You may resume driving the car when you feel safe and comfortable behind the wheel. No sexual activity as instructed. Wound care If you have a bandage, leave it on, and keep dry for 48-72 hours. After that time discard the outer bandage. If they are tapes on the skin under the out of bandage leave them in place. They will peel off in the next 7 to 10 days. Do Not Peel them off. You may shower the day after surgery. If there are tapes present on the skin, you may shower over them. Diet There are no dietary restrictions. Eat healthy, high-fiber foods. Drink 6 to 8 glasses of liquid each day. This will assist in keeping your bowels are regular. Pain management You may take Tylenol or acetaminophen or Ibuprofen (for example, Motrin, Advil etc.) from my pain prescription medication is ordered should be taken as prescribed for moderate to severe pain. Call MD for any of the following: Severe pain not relieved by medication Fever of 101 or higher Excessive bleeding or drainage on dressing Inability to urinate Disposition: HOME - Home Medications Comprehensive Discharge Medication List: Ambulatory Orders Vitamins (Sjr) - 1 tab PO DAILY 11/28/18
--- NOTE | 2019-04-04 19:03 | PATH ---
Surgical Pathology Report Patient Name: HERMELINDA VILLATORO Med. Rec. #: [id number] /Age/Gender: 1995 (Age: 24) / F Account: [id number] Location: [facility] OBS/ROOM INSPECTOR Taken: 03/27/2019 Received: 03/28/2019 Reported: 04/04/2019 Physicians: Prince Duke M.D. Specimen(s) Received PLACENTA Clinical History , 40 weeks Prolonged rupture of membranes, nonreassuring heart rate Final Diagnosis PLACENTA, SECTION: 561 G THIRD TRIMESTER PLACENTA WITH TRIVASCULAR UMBILICAL CORD AND PLACENTAL MEMBRANES WITH RARE MECONIUM-LADEN MACROPHAGES. Electronically Signed Martha Saravia M.D. Gross Description The specimen is received fresh labeled placenta and is a 561 gram, 18.5 x 16.5 x 3.7 cm. placenta with attached membranes and umbilical cord. The attached membranes are garvin green, meconium stained, translucent with focal opacities and insert marginally. The umbilical cord measures 14 cm. in length and averages 1.2 cm. in diameter. The cord inserts eccentrically, 4 cm. to the nearest margin. No true knots or strictures are identified. Cut surface of the umbilical cord reveals 3 vessels. The surface is chakraborty green, meconium stained with minimal fibrin deposition and appropriate caliber vessels. The maternal surface is red-brown with focal defects. Sectioning reveals red-brown, spongy parenchyma. No lesions are identified. Flexographic Printing Press Operator sections are submitted in three cassettes as follows: 1- membrane rolls and umbilical cord; 2-3- full thickness sections of placenta. 04/03/2019 [facility]04/03/2019
== END 2019-03-31 12:20 | disposition home or self-care (01) | DRG 540 ==
LOC: JLDR 05:58 → J3W 03-28 01:35
PROVIDERS: ADMIT Obstetrics & Gynecology; ATTEND Obstetrics & Gynecology
PROC: 10D00Z1 Extraction of Products of Conception, Low, Open Approach (ICD-10-PCS; principal; 2019-03-27)
DX: O48.0 Post-term pregnancy (principal); O76 Abnormality in fetal heart rate and rhythm complicating labor and delivery; O62.0 Primary inadequate contractions; O99.824 Streptococcus B carrier state complicating childbirth; Z3A.40 40 weeks gestation of pregnancy; Z37.0 Single live birth
CPT/HCPCS: 36415; 36600; 80048; 82803; 85025; 85610; 85730; 86593; 86850; 86900; 86901; 87389; 88307-TC

== ENCOUNTER 2020-01-11 13:39 | Emergency (ER) | payer OTHER ==
[2020-01-11 13:54] VITALS: BP 137/78; PULSE 63; TEMP 98.3; BMI 34.7
[2020-01-11] MEDS ORDERED: ONDANSETRON 4 MG/2 ML VIAL IVPB ONE (14:09)
[2020-01-11] MEDS ORDERED: SODIUM CHLORIDE 1,000 ML IV STA (14:09)
[2020-01-11] MEDS ORDERED: FAMOTIDINE 20 MG/50 ML IVPB 20 MG/50 ML MG IVPB ONE ×2 (14:09→14:15)
--- NOTE | 2020-01-11 14:12 | PDOC ---
History of Present Illness - General Chief Complaint: Nausea/Vomiting Stated Complaint: NAUSEA, DIZZY Time Seen by Provider: 01/11/20 13:43 - History of Present Illness Initial Comments: 01/11/20 14:10 24 F with no PMH presents to ED with lightheadedness and nausea+ vomiting. Pt states that her symptoms started today. She reports lightheadedness without LOC. Also endorses nausea and one episode of vomit. Denies abdominal pain or diarrhea. No F/C. Pt also endorses generalized malaise and fatigue. No cough, no SOB, no CP. Past History - Medical History Allergies/Adverse Reactions: Allergies Allergy/AdvReac Type Severity Reaction Status Date / Time No Known Allergies Allergy Verified 01/11/20 13:40 Home Medications: Ambulatory Orders NK [No Known Home Medication] 01/11/20 Anemia: Yes Asthma: No Cancer: No Cardiac Disorders: No CVA: No COPD: No Diabetes: No HTN: No Psychiatric Problems: No Seizures: No Thyroid Disease: No - Surgical History Abdominal Surgery: No Appendectomy: No Cardiac Surgery: No Gastric Stapling: No - Reproductive History Is Patient Now?: No (DENIES) - Immunization History Immunization Up to Date: No - Psycho-Social/Smoking History Smoking Status: No Smoking History: Never smoked Have you smoked in the past 12 months: No Number of Cigarettes Smoked Daily: 0 Information on smoking cessation initiated: No 'Breaking Loose' booklet given: 08/09/18 - Substance Abuse Hx (Audit-C & DAST Scrn) How often the patient has a drink containing alcohol: Never Score: In Men: 4 or > Positive; In Women: 3 or > Positive: 0 Screen Result (Pos requires Nsg. Audit-10AR): Negative In the last yr the pt used illegal drug/Rx for NonMed reason: No Score: Yes response is considered Positive: 0 Screen Result (Positive result requires Nsg. DAST-10): Negative Review of Systems - Review of Systems Comments:: 01/11/20 14:11 "GENERAL/CONSTITUTIONAL: No fever or chills. No weakness. HEAD, EYES, EARS, NOSE AND THROAT: No change in vision. No ear pain or discharge. No sore throat. CARDIOVASCULAR: No chest pain, no shortness of breath, no loss of consciousness RESPIRATORY: No cough, wheezing, or hemoptysis. GASTROINTESTINAL: + nausea, + vomiting, no diarrhea or constipation. GENITOURINARY: No dysuria, frequency, or change in urination. MUSCULOSKELETAL: No joint or muscle swelling or pain. No neck or back pain. SKIN: No rash NEUROLOGIC: No vertigo, no change in strength/sensation. ENDOCRINE: No increased thirst. No abnormal weight change. HEMATOLOGIC/LYMPHATIC: No anemia, easy bleeding, or history of blood clots. ALLERGIC/IMMUNOLOGIC: No hives or skin allergy. *Physical Exam - Vital Signs Last Vital Signs Temp Pulse Resp BP Pulse Ox 98.3 F 63 20 137/78 100 01/11/20 13:40 01/11/20 13:40 01/11/20 13:40 01/11/20 13:40 01/11/20 13:40 - Physical Exam 01/11/20 14:11 "GENERAL: Awake, alert, and fully oriented, in no acute distress. HEAD: No signs of trauma EYES: PERRLA, EOMI, sclera anicteric, conjunctiva clear ENT: Auricles normal inspection, hearing grossly normal, nares patent, oropharynx clear without exudates. Moist mucosa NECK: Nontender, no stepoffs, Normal ROM, supple, no lymphadenopathy, JVD, or masses LUNGS: Breath sounds equal, clear to auscultation bilaterally. No wheezes, and no crackles HEART: Regular rate and rhythm, normal S1 and S2, no murmurs, rubs or gallops ABDOMEN: + epigastric and RUQ TTP, normoactive bowel sounds. No guarding, no rebound. No masses EXTREMITIES: Normal range of motion, no edema. No clubbing or cyanosis. No cords, erythema, or tenderness NEUROLOGICAL: Cranial nerves II through XII intact. 5/5 strength and sensation in all extremities, Normal speech, normal gait, normal cerebellar function SKIN: Warm, Dry, normal turgor, no rashes or lesions noted. ED Treatment Course - LABORATORY CBC & Chemistry Diagram: 01/11/20 14:26 01/11/20 14:26 - RADIOLOGY Radiology Studies Ordered: Category Date Time Status ABDOMEN US [US] Stat Ultrasound 01/11/20 14:09 Ordered Medical Decision Making - Medical Decision Making 01/11/20 14:12 24 F with N+V and malaise. Found to have epigastric and RUQ TTP on exam. - Labs, UA, UPT - RUQ sono - IVF, GI cocktail 01/11/20 15:12 UPT positive Will add B HCG and TVUS to work up 01/11/20 17:22 Prelim read of US - Pt with IUP. Abdominal US wnl. Discussed results with pt, who states she wishes to terminate . Will give OB f/u for further management. Pt reassessed - feels well, tolerating PO Pt is well appearing, with normal vitals. Clinically stable for DC at this time. I discussed the physical exam findings, ancillary test results and final diagnoses with the patient. I answered all of the patient's questions. The patient was satisfied with the care received and felt comfortable with the discharge plan and treatment plan. The patient agrees to follow up with the primary care physician within 24-72 hours. Discharge - Discharge Information Problems reviewed: Yes Clinical Impression/Diagnosis: Nausea and vomiting, , Anemia Condition: Stable Disposition: HOME - Follow up/Referral Referrals: Prince Duke MD [Staff Physician] - - Patient Discharge Instructions Patient Printed Discharge Instructions: DI for Hyperemesis Gravidarum Additional Instructions: You are . You must follow up with an supervisor fruit grading for further management of this . Call the number provided to make an appointment. If you experience any abdominal pain, vaginal bleeding, fevers, nausea, vomiting, or any other concerning symptoms, return to the ER immediately. - Post Discharge Activity
[2020-01-11] MEDS ORDERED: ONDANSETRON 4 MG/2 ML VIAL ONE (14:15)
[2020-01-11 14:16] LABS: HCG,QUALITATIVE URINE Positive
[2020-01-11 14:40] LABS: BASO % 0.5 % (0-2.0); HEMATOCRIT 28.8 % (32.4-45.2); LYMPH % 20.9 % (8-40); MCH 20.9 pg (25.7-33.7); MCHC 31.1 g/dl (32.0-36.0); MEAN CELL VOLUME 67.2 fl (80-96); MEAN PLT VOLUME 8.4 fl (7.5-11.1); MONO % 8.7 % (3.8-10.2); NEUT % 68.9 % (42.8-82.8); PLATELET COUNT 274 K/MM3 (134-434); RBC 4.29 M/mm3 (3.60-5.2); RDW 17.8 % (11.6-15.6); WHITE BLOOD COUNT 8.9 K/mm3 (4.0-10.8)
[2020-01-11 14:42] LABS: ADD RBC MORPHOLOGY YES
[2020-01-11 14:47] LABS: EPITHELIAL CELLS MODERATE /hpf; URINE MUCUS 1+
[2020-01-11 15:01] LABS: ALBUMIN 3.3 g/dl (3.4-5.0); ANISOCYTOSIS 1+; BILIRUBIN,TOTAL 0.6 mg/dl (0.2-1); CALCIUM 8.4 mg/dl (8.5-10); CREATININE 0.5 mg/dl (0.55-1.3); POTASSIUM 3.8 mmol/L (3.5-5.1); TOT PROT 6.3 g/dl (6.4-8.2)
== END 2020-01-11 18:08 | disposition home or self-care (01) ==
LOC: FER 13:39
PROC: 3E033GC Introduction of Other Therapeutic Substance into Peripheral Vein, Percutaneous Approach (ICD-10-PCS; principal; 2020-01-11)
PROC: 3E0337Z Introduction of Electrolytic and Water Balance Substance into Peripheral Vein, Percutaneous Approach (ICD-10-PCS; 2020-01-11)
DX: O21.9 Vomiting of pregnancy, unspecified (principal); D64.9 Anemia, unspecified
CPT/HCPCS: 36415; 76700-TC; 76817-TC; 80053; 81003; 81015; 83690; 84702; 84703; 85025; 87086; 96361; 96374; 96375; 99285-25

== ENCOUNTER 2020-04-05 13:33 | Emergency (ER) | payer OTHER | END 2020-04-05 14:13 | disposition home or self-care (01) | LOC: JVIRT 13:33 | DX: J34.89 Other specified disorders of nose and nasal sinuses (principal); Z11.59 Encounter for screening for other viral diseases | CPT/HCPCS: C9803; Q3014-GT; U0003 ==